=== PATIENT | female | born 1985 | race Two or more races ===

== ENCOUNTER 2016-10-05 10:21 | Emergency (ER) | payer MEDICAID ==
[2016-10-05 10:59] VITALS: BP 130/94
== END 2016-10-05 13:43 | disposition left against medical advice (07) ==
LOC: ER 10:21
DX: R51 Headache (principal); R11.10 Vomiting, unspecified; Z53.21 Procedure and treatment not carried out due to patient leaving prior to being seen by health care provider

== ENCOUNTER 2018-04-22 11:02 | Emergency (ER) | payer MEDICAID, OTHER ==
[~2018-04-22] VITALS: Ht 170.2 cm; Wt 79.4 kg
[2018-04-22 11:36] LABS: Basophils # (auto) 0.1 uL; Hemoglobin 12.6 g/dL (12.2-16.2); Monocytes % (auto) 4.8 % (0.0-12.0); White Blood Cell 9.3 10^3/uL (4.4-10.8)
[2018-04-22 11:39] LABS: Basophils % (auto) 0.7 % (0.0-2.0); Eosinophils # (auto) 0.2 uL; Eosinophils % (auto) 1.7 % (0.0-7.0); Hematocrit 39.2 % (36.0-46.0); Lymphocytes # (auto) 2.2 uL; Lymphocytes % (auto) 23.2 % (10.0-50.0); Mean Corpuscular Hemoglobin 24.8 pg (28.0-32.0); Mean Corpuscular Hgb Conc. 32.1 g/dL (32.0-36.0); Mean Corpuscular Volume 77.3 fL (80.0-100.0); Monocytes # (auto) 0.5 uL; Neutrophils # (auto) 6.5 uL; Neutrophils % (auto) 69.6 % (37.0-80.0); Nucleated Red Blood Cells % 0.1 %; Platelet Count (auto) 226 10^3/uL (140-450); Red Blood Cells 5.07 10^6/uL (4.0-5.20); Red Cell Distribution Width 16.1 % (11.8-14.3)
[2018-04-22 11:51] LABS: Urine Bacteria MODERATE /hpf (None Seen); Urine Blood Trace /uL (Negative); Urine WBC 0-2 /hpf (0 - 5)
[2018-04-22 11:56] LABS: Albumin 4.1 g/dL (3.4-5.0); Bilirubin, Total 0.3 mg/dL (0.2-1.0); Calcium 8.7 mg/dL (8.5-10.1); Potassium 4.2 mmol/L (3.5-5.1); Total Protein 8.5 g/dL (6.4-8.2)
[2018-04-22] MEDS ORDERED: LIDOCAINE 1% (LOCAL ANESTH.) PF 5ml SDV ONE (15:42)
[2018-04-22 15:45] VITALS: BP 120/84
[2018-04-22] MEDS ORDERED: cefTRIAXone SOD 1,000 MG VL IM ONE (15:45)
[2018-04-22] MEDS ORDERED: KETOROLAC TROMETH 60MG/2ML VIAL IM ONE (15:45)
== END 2018-04-22 16:11 | disposition home or self-care (01) ==
LOC: ER 11:02
DX: N75.0 Cyst of Bartholin's gland (principal); F17.210 Nicotine dependence, cigarettes, uncomplicated
CPT/HCPCS: 36415; 80053; 81001; 84702; 85025; 96372; 99284; J0696; J1885